=== PATIENT | male | born 1995 | race Caucasian/White ===

== ENCOUNTER 2018-07-09 11:25 | Emergency (ER) | payer SELFPAY ==
[2018-07-09 11:31] VITALS: BMI 29.2
[2018-07-09 11:34] VITALS: BP 135/79; PULSE 65; RESP 18; TEMP 98; O2SAT 99
--- NOTE | 2018-07-09 11:50 | C.PDOC ---
History Of Present Illness 22 year old male presents to ED complaining of lower back pain for the past 3 months. Patient states he developed mid-lower back pain that radiates down to both buttocks. He denies trauma, bowel/bladder dysfunction, weakness or paresthesia. Chief Complaint (Nursing): Back Pain History Per: Patient History/Exam Limitations: no limitations Onset/Duration Of Symptoms: Days Current Symptoms Are (Timing): Still Present Past Medical History Reviewed: Historical Data, Nursing Documentation, Vital Signs Vital Signs: Last Vital Signs Temp 98 F 07/09/18 11:31 Pulse 65 07/09/18 11:31 Resp 18 07/09/18 11:31 BP 135/79 07/09/18 11:31 Pulse Ox 99 07/09/18 11:31 - Medical History PMH: No Chronic Diseases Surgical History: No Surg Hx Family History: States: No Known Family Hx - Social History Hx Alcohol Use: No Hx Substance Use: No - Immunization History Hx Tetanus Toxoid Vaccination: No Hx Influenza Vaccination: No Hx Pneumococcal Vaccination: No Review Of Systems Except As Marked, All Systems Reviewed And Found Negative. Genitourinary: Negative for: Incontinence Musculoskeletal: Positive for: Back Pain (mid-lower back pain radiating to both buttocks) Neurological: Negative for: Weakness, Numbness Physical Exam - Physical Exam Appears: Non-toxic, No Acute Distress Skin: Warm, Dry Head: Atraumatic, Normacephalic Eye(s): bilateral: Normal Inspection Oral Mucosa: Moist Neck: Supple Chest: Symmetrical Cardiovascular: Rhythm Regular, No Murmur Respiratory: Normal Breath Sounds, No Rales, No Rhonchi, No Wheezing Back: Other (diffuse muscular tenderness of lower back, normal ROM) Neurological/Psych: Oriented x3, Normal Speech, Normal Motor, Normal Sensation, Normal Reflexes Gait: Steady ED Course And Treatment O2 Sat by Pulse Oximetry: 99 (RA) Pulse Ox Interpretation: Normal Medical Decision Making Medical Decision Making: Plan: --Lumbar Spine X-Ray X-ray showed no fracture. Normal alignment. Disposition Counseled Patient/Family Regarding: Diagnosis, Need For Followup, Rx Given - Disposition Referrals: Clinic,Med Surg [Non-Staff] - Disposition: HOME/ ROUTINE Disposition Time: 11:57 Condition: STABLE Prescriptions: Ibuprofen [Motrin] 600 mg PO TID #20 tab Methocarbamol [Robaxin] 1 mg PO BID 7 Days #18 tab Forms: General Discharge Instructions, [facility] (Norwegian), Work Excuse - Clinical Impression Clinical Impression: Lumbago - Scribe Statement The provider has reviewed the documentation as recorded by the Anujibe Bella Scott Provider Attestation: All medical record entries made by the Anujibe were at my direction and personally dictated by me. I have reviewed the chart and agree that the record accurately reflects my personal performance of the history, physical exam, medical decision making, and the department course for this patient. I have also personally directed, reviewed, and agree with the discharge instructions and disposition.
--- NOTE | 2018-07-09 14:08 | RAD ---
Lumbar spine three views History: Pain. Comparison: None available. Findings: Spinal alignment is maintained. Mild inferior endplate concavity of the L5 vertebral body. No evidence of acute displaced fracture. Impression: Negative acute. If pain persists, consider MRI.
== END 2018-07-09 12:04 | disposition home or self-care (01) ==
LOC: C.ER 11:25
DX: M54.5 Low back pain (principal)